=== PATIENT | male | born 1980 | race Caucasian/White ===

== ENCOUNTER 2016-10-14 17:25 | Emergency (ER) | payer SELFPAY ==
[2016-10-14 17:42] VITALS: BP 138/72
[2016-10-14] MEDS ORDERED: Ibuprofen TAB* 800 MG PO ONE (20:19)
--- NOTE | 2016-10-14 20:54 | RAD ---
INDICATION: Right rib injury. TECHNIQUE: 4 views of the right ribs and a PA view of the chest were obtained. FINDINGS: No fracture or significant focal osseous abnormality is seen. The heart is within normal limits in size. The lungs are clear. There is no evidence for pneumothorax or pleural effusion. IMPRESSION: NO EVIDENCE FOR FRACTURE..
--- NOTE | 2016-11-08 08:03 | ED ---
Adult Trauma - HPI Summary HPI Summary: Pt here w. Rt sided rib pain after a pt kneed him in the ribs earlier today. Sore, worse w/ rotation and bending. Denies SOB or difficulty breathing. Better w/ neutral position. Has not taken anything for this yet. No other injuries to report. - History of Current Complaint Chief Complaint: EDChestWallPain Stated Complaint: RT SIDE PAIN Time Seen by Provider: 10/14/16 19:48 Hx Obtained From: Patient Pain Intensity: 4 - Allergy/Home Medications Allergies/Adverse Reactions: Allergies Allergy/AdvReac Type Severity Reaction Status Date / Time Amoxicillin Allergy Anaphylatic Verified 07/17/15 12:04 Shock Penicillins [PCN] Allergy Anaphylatic Verified 07/17/15 12:04 Shock PMH/Surg Hx/FS Hx/Imm Hx Previously Healthy: Yes Endocrine/Hematology History: Denies: Hx Anticoagulant Therapy, Hx Blood Disorders Infectious Disease History: No Infectious Disease History: Denies: Traveled Outside the [place] in Last 30 Days - Social History 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[employer] – [place] Alcohol Use: Occasionally Substance Use Type: Reports: None Smoking Status (MU): Never Smoked Tobacco Review of Systems Negative: Fatigue Negative: Chest Pain Negative: Shortness Of Breath Negative: Vomiting, Nausea Positive: no symptoms reported Musculoskeletal: Other - see HPI Negative: Bruising Neurological: Negative Negative: Weakness, Paresthesia, Numbness, Syncope Psychological: Normal All Other Systems Reviewed And Are Negative: Yes Physical Exam Triage Information Reviewed: Yes Vital Signs On Initial Exam: Initial Vitals Temp Pulse Resp BP Pulse Ox 97.5 F 86 20 138/72 97 10/14/16 17:40 10/14/16 17:40 10/14/16 17:40 10/14/16 17:40 10/14/16 17:40 Vital Signs Reviewed: Yes Appearance: Positive: Well-Appearing, Well-Nourished, Pain Distress - mild Skin: Positive: Warm, Dry - no ecchymosis over affected area Head/Face: Positive: Normal Head/Face Inspection Eyes: Positive: Normal, EOMI ENT: Positive: Hearing grossly normal Respiratory/Lung Sounds: Positive: Clear to Auscultation, Breath Sounds Present. Negative: Rales, Rhonchi, Subcutaneous Emphysema, Stridor, Tracheal Deviation, Wheezes, Unable to speak in full sentences Cardiovascular: Positive: Normal, RRR, Pulses are Symmetrical in both Upper and Lower Extremities Abdomen Description: Positive: Nontender, Soft Musculoskeletal: Positive: Strength/ROM Intact - pain in Rt ribs worse w/ rotation, overhead reaching, Pain @ - Rt ribs TTP - no flail chest or gross deformity Neurological: Positive: Normal, Sensory/Motor Intact, Alert, Oriented to Person Place, Time, CN Intact II-III Psychiatric: Positive: Normal Diagnostics - Vital Signs Vital Signs Temp Pulse Resp BP Pulse Ox 10/14/16 21:20 98.2 F 86 20 138/72 10/14/16 20:41 97.1 F 89 20 10/14/16 17:42 97.4 F 91 20 138/72 100 10/14/16 17:40 97.5 F 86 20 138/72 97 - Laboratory Lab Statement: Any lab studies that have been ordered have been reviewed, and results considered in the medical decision making process. Adult Trauma Course/Dx - Diagnoses Provider Diagnoses: Contusion of rib on right side Discharge - Discharge Plan Condition: Stable Disposition: HOME Patient Education Materials: Rib Contusion (ED) Referrals: Fly Otero JR PA [Primary Care Provider] - Additional Instructions: Rest, ice, compress with pillow for coughing, sneezing, deep breathes Ibuprofen with food alternating with acetaminophen for pain May use salonpas patches as needed for pain Follow-up with PCP if symptoms persist or worsen *If you develop fever, chills, difficulty breathing, return to ED
== END 2016-10-14 21:43 | disposition home or self-care (01) ==
LOC: ED 17:25
DX: S20.211A Contusion of right front wall of thorax, initial encounter (principal); W50.0XXA Accidental hit or strike by another person, initial encounter; Y93.9 Activity, unspecified; Y92.9 Unspecified place or not applicable; R07.81 Pleurodynia
CPT/HCPCS: 99282; A9270-GY

== ENCOUNTER 2017-11-24 02:45 | Emergency (ER) | payer OTHER ==
[2017-11-24 04:37] VITALS: BP 144/80
--- NOTE | 2017-11-24 05:07 | ED ---
Upper Extremity Pain - HPI Summary HPI Summary: This is scribe Artjen Palacio documenting for attending Dr. Matt Song MD. A 37 y/o male presents to ED c/o bilateral right shoulder pain. As per triage, ""feels like it is going to pop out"". According to the patient he experieenced left shoulder numbness and right shoulder soreness from an incident. He noted some tingling and numbness in right arm/hand/thumb. The pain feels like a pinch in his shoulder and it is reaching 6/10 in severity. He denies any tenderness in the shoulder areas, however, it is painful. - History of Current Complaint Chief Complaint: EDExtremityUpper Stated Complaint: BILATERAL SHOULDER INJURY Time Seen by Provider: 11/24/17 03:32 Hx Obtained From: Patient Mechanism Of Injury: Unknown Onset/Duration: Started Days Ago, Still Present Timing: Constant Pain Location: Shoulder - Right and Left Character: Sharp - Pinching Aggravating Factor(s): Movement, Lifting Alleviating Factor(s): Nothing Associated Signs & Symptoms: Positive: Numbness/Tingling. Negative: Fever - Allergies/Home Medications Allergies/Adverse Reactions: Allergies Allergy/AdvReac Type Severity Reaction Status Date / Time amoxicillin Allergy Anaphylatic Verified 11/24/17 04:09 Shock Penicillins Allergy Anaphylatic Verified 11/24/17 04:09 Shock Home Medications: Home Medications NK [No Home Medications Reported] 11/24/17 [History Confirmed 11/24/17] PMH/Surg Hx/FS Hx/Imm Hx Endocrine/Hematology History: Denies: Hx Anticoagulant Therapy, Hx Blood Disorders Respiratory History: Denies: Hx Asthma Infectious Disease History: No Infectious Disease History: Denies: Traveled Outside the [place] in Last 30 Days - Family History Known Family History: Negative: Cardiac Disease - Social History Alcohol Use: Occasionally Substance Use Type: Reports: None Smoking Status (MU): Never Smoked Tobacco Review of Systems Negative: Fever Positive: Other - POSITIVE: Pain in shoulders Neurological: Other - POSITIVE: Tingling Positive: Numbness All Other Systems Reviewed And Are Negative: Yes Physical Exam - Summary Physical Exam Summary: Appearance: Well-appearing, Well-nourished, lying in bed comfortable Skin: Warm, dry, no obvious rash Eyes: sclera anicteric, no conjunctival pallor ENT: mucous membranes moist Neck: deferred Respiratory: No signs of respiratory distress Cardiovascular: Appears well perfused, pulses are nml Abdomen: deferred Musculoskeletal: Moving all 4 extremities without obvious discomfort. Right shoulder pain with ROM but he has pretty good ROM. No motor deficit. No sensory deficit. Reflective of normal without fullness. Neurological: Awake and alert, mentation is normal, speech is fluent and appropriate Psychiatric: affect is normal, does not appear anxious or depressed Triage Information Reviewed: Yes Vital Signs On Initial Exam: Initial Vitals Temp Pulse Resp BP Pulse Ox 97.8 F 74 18 154/93 100 11/24/17 02:49 11/24/17 02:49 11/24/17 02:49 11/24/17 02:49 11/24/17 02:49 Vital Signs Reviewed: Yes Diagnostics - Vital Signs Vital Signs Temp Pulse Resp BP Pulse Ox 11/24/17 04:36 0 F 76 16 144/80 96 11/24/17 02:49 97.8 F 74 18 154/93 100 - Laboratory Lab Statement: Any lab studies that have been ordered have been reviewed, and results considered in the medical decision making process. - Radiology SHOULDER XR Radiology Interpretation Completed By: ED Physician - NORMAL. Course/Dx - Diagnoses Provider Diagnoses: Shoulder pain Discharge - Sign-Out/Discharge Documenting (check all that apply): Patient Departure - Discharge Plan Condition: Stable Disposition: HOME Patient Education Materials: Shoulder Sprain (ED) Referrals: [facility] th Clinic,[facility] [Z.BUSINESS, APPLICATION, OTHER] - Fly Otero JR, PA [Primary Care Provider] - 2 Days Additional Instructions: RETURN TO ED FOR ANY NEW OR WORSENING SYMPTOMS. - Billing Disposition and Condition Condition: STABLE Disposition: Home
--- NOTE | 2017-11-24 08:12 | RAD ---
Indication: RIGHT shoulder pain following injury 4 days ago. Now numbness. Comparison: No relevant prior exams available on the [facility] PACS for comparison. Technique: Internal rotation AP, external rotation Grashey, scapular Y RIGHT shoulder Report: Negative for fracture. Normal acromioclavicular and glenohumeral joint alignment. Mild osteophytic lipping at the acromioclavicular and glenohumeral joints. Small inferior acromial bone spur. Negative for calcific tendinopathy or abnormal soft tissue contour. IMPRESSION: #. No radiographic evidence for RIGHT shoulder traumatic injury. #. Mild osteoarthritis. R1
== END 2017-11-24 04:35 | disposition home or self-care (01) ==
LOC: ED 02:45
DX: M25.511 Pain in right shoulder (principal); M19.011 Primary osteoarthritis, right shoulder; Z88.0 Allergy status to penicillin
CPT/HCPCS: 99282

== ENCOUNTER 2018-05-17 05:41 | Day surgery (SDC) | payer OTHER ==
--- NOTE | 2018-04-27 07:29 | HP ---
HISTORY AND PHYSICAL: DATE OF ADMISSION/SURGERY: 05/17/18. DATE OF OFFICE VISIT: 04/25/18. SURGEON: Lucy Burkett MD.* (DICTATED BY MICHELLE PHILLIPS) PROCEDURE: Right carpal tunnel release. CHIEF COMPLAINT: Right wrist pain. HISTORY OF PRESENT ILLNESS: Mr. Jarrett is a 37-year-old gentleman with confirmed right carpal tunnel syndrome with thenar atrophy. He has elected to proceed with a right carpal tunnel release. PAST MEDICAL HISTORY: Denies. PAST SURGICAL HISTORY: Left knee arthroscopy. CURRENT MEDICATIONS: None. ALLERGIES: PENICILLIN, CEPHALOSPORINS. FAMILY HISTORY: Coronary artery disease, diabetes and cancer. SOCIAL HISTORY: He is a 37-year-old gentleman who lives with his . He does not smoke or use drugs. He uses occasional alcohol. REVIEW OF SYSTEMS: A complete 14-point review of systems was reviewed with the patient, was all negative or noncontributory. He denies a history of DVT, PE, hepatitis, HIV or anesthesia problems. PHYSICAL EXAMINATION GENERAL: He is well developed, well nourished, in no acute distress. VITAL SIGNS: He stands 73 inches tall, weighs 350 pounds. HEENT: Normocephalic, atraumatic. NECK: Supple. No palpable lymph nodes. PULMONARY: The lungs are clear to auscultation bilaterally. CARDIO: Regular rate and rhythm. Strong S1, S2. ABDOMEN: Soft, nontender and nondistended. NEUROLOGICAL: He is alert and oriented x3. MUSCULOSKELETAL: Right upper extremity: The skin is intact. There are no open wounds or abrasions. He has a 2+ distal radius pulse. He has intact sensation. There is some noticeable thenar atrophy and some decreased sensation over the right thumb and index finger. All of his upper extremity muscle group strength are intact at 5/5. ASSESSMENT AND PLAN: Mr. Jarrett is a 37-year-old gentleman with severe right carpal tunnel syndrome. He has elected to proceed with a carpal tunnel release which is scheduled for 05/17/[address] Burkett discussed the risks and benefits of the surgery at today's visit and all of his questions were answered. He will follow up with Dr. Burkett two weeks after the surgery. MICHELLE PHILLIPS [id number]/[facility] #: [id number] JUHI
[~2018-05-17 05:41] MED LIST: Buffered Lidocaine 0.9% SYRIN* 5 ML/SYR SYRINGE INTRADERM ONE
[2018-05-17] MEDS ORDERED: Lactated Ringers 1000 ML Bag* 1,000 ML IV SCH (06:00)
[2018-05-17] MEDS ORDERED: Clindamycin 900 MG/D5W BAG(*) 900 MG/50 ML BAG IVPB ONE (06:15)
[2018-05-17] MEDS ORDERED: Propofol* 10 MG/ML 20 ML BTL ONE (06:40)
[2018-05-17] MEDS ORDERED: fentaNYL* 50 MCG/ML 2 ML VIAL (100 MCG VIAL) ONE (06:41)
[2018-05-17] MEDS ORDERED: Midazolam* 1 MG/ML 2 ML VIAL (2 MG) ONE (06:41)
[2018-05-17] MEDS ORDERED: Lidocaine 2% PF * 5 ML VIAL ONE (06:41)
[2018-05-17] MEDS ORDERED: Bupivacaine 0.5%* 50 ML VIAL ONE (06:55)
[2018-05-17] MEDS ORDERED: Lidocaine 1% INJ* 10 MG/ML 30 ML SDV ONE (06:55)
[2018-05-17] MEDS ORDERED: Succinylcholine* 20 MG/ML 10 ML VIAL ONE (07:22)
[2018-05-17] MEDS ORDERED: Acetaminophen TAB* 325 MG PO PRN (07:59)
[2018-05-17] MEDS ORDERED: Naloxone* 0.4 MG/ML 1 ML VIAL IV PRN (07:59)
[2018-05-17] MEDS ORDERED: oxyCODONE TAB* 5 MG TAB PO PRN (07:59)
[2018-05-17] MEDS ORDERED: fentaNYL* 50 MCG/ML 2 ML VIAL (100 MCG VIAL) IV PRN (07:59)
[2018-05-17] MEDS ORDERED: Ketorolac INJ* 30 MG/ML 1 ML VIAL ONE (08:02)
[2018-05-17] MEDS ORDERED: Metoclopramide IV* 5 MG/ML 2 ML VIAL ONE (08:02)
[2018-05-17] MEDS ORDERED: Dexamethasone IV* 4 MG/ML 1 ML (4 MG) ONE (08:02)
[2018-05-17] MEDS ORDERED: Ondansetron INJ* 2 MG/ML VIAL ONE (08:02)
[2018-05-17 09:21] VITALS: BP 129/93
--- NOTE | 2018-05-17 23:47 | OP ---
DATE OF OPERATION: 05/17/18 - [facility] DATE OF : 78 SURGEON: Lucy Burkett MD PACKAGING SALES CONSULTANT: MICHELLE Heath. Ms. Smith did help throughout the procedure with preparation of the arm, wound retraction, and wound closure. ANESTHESIOLOGIST: Dr. Thornton. ANESTHESIA: General. PRE-OP DIAGNOSIS: Right median nerve compression/carpal tunnel syndrome at the wrist. POST-OP DIAGNOSIS: Right median nerve compression/carpal tunnel syndrome at the wrist. OPERATIVE PROCEDURE: Open right carpal tunnel release. TOURNIQUET TIME: 12 minutes. COMPLICATIONS: None. ESTIMATED BLOOD LOSS: Less than 25 cc. SPECIMEN: None. BRIEF HISTORY AND INDICATIONS: Mr. Jarrett is a 37-year-old gentleman who developed carpal tunnel syndrome as a work-related injury. EMG nerve conduction study confirmed compression of the median nerve at the wrist. Conservative treatments failed to help his pain and numbness. Due to continued pain and decreased quality of life, he elected to undergo carpal tunnel release. Informed consent was obtained from the patient. He understood the risks of surgery included, but were not limited to, bleeding, infection, damage to nearby structures, continued pain, need for further surgery, continued weakness, continued numbness, anesthesia complications, stroke, heart attack, blood clot, and . He wished to proceed. INTRAOPERATIVE FINDINGS: Intraoperatively, the patient was noted to have an extremely thickened palmar fascia as well as a thickened transverse carpal ligament compressing the median nerve. DESCRIPTION OF PROCEDURE: Mr. Jarrett was identified in the preanesthesia unit. His right wrist was marked as the correct operative site. Informed consent was signed and placed in the chart. The patient was taken to the operating room and placed under general anesthesia. The tourniquet was placed on the right upper arm. The right upper extremity was prepped and draped in the usual sterile fashion. Preoperative timeout was made to correctly identify the patient, side, and site. Appropriate perioperative antibiotics were given within 1 hour of incision. 5 cc of 0.5% Marcaine were used for local anesthesia. The tourniquet was inflated and total tourniquet time was 12 minutes. A 2 cm longitudinal incision was made directly over the carpal tunnel with a 15 blade. Tenotomies were used to dissect down through the subcutaneous fat. The palmar fascia was extremely thickened. This was released in a longitudinal fashion using tenotomies and a 15 blade. The transverse carpal ligament was easily visualized. A 15 blade was used to carefully release the ligament longitudinally. The median nerve was visible. Obvious site of compression here was noted. Tenotomies were used to ensure complete release distally and proximally along the transverse carpal ligament. The tourniquet was turned down at 12 minutes. The wound was copiously irrigated with sterile saline. Electrocautery was used to obtain meticulous hemostasis. The wound was closed using interrupted 3-0 Vicryl sutures in a simple and vertical mattress fashion. Sterile Xeroform, 4x4s, and Webril were used to cover the incision. A volar plaster splint was placed with an Junaid wrap over. The patient 's anesthesia was reversed without difficulty. He was taken to the PACU in stable condition. Intended weightbearing will be nonweightbearing, right upper extremity. He will follow up in 3 days for dressing removal and will be placed in a removable splint. [id number]/[facility] #: [id number] JUHI
== END 2018-05-17 09:25 | disposition home or self-care (01) ==
LOC: OR 05:41
PROVIDERS: ATTEND Orthopaedic Surgery Adult Reconstructive Orthopaedic Surgery
DX: G56.01 Carpal tunnel syndrome, right upper limb (principal); E66.01 Morbid (severe) obesity due to excess calories; R01.1 Cardiac murmur, unspecified; J45.909 Unspecified asthma, uncomplicated
CPT/HCPCS: J0330; J1100; J1885; J2250; J2405; J2704; J2765; J3010

== ENCOUNTER 2019-01-08 01:01 | Emergency (ER) | payer OTHER ==
[2019-01-08 01:24] VITALS: BP 0/0
--- NOTE | 2019-01-08 01:24 | ED ---
Upper Extremity Pain - HPI Summary HPI Summary: Pt is a 38 y/o M presenting to the ED with a chief complaint of upper extremity pain. 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 However, he developed pain in his L-sided scapula as well as a shooting pain from his R shoulder down to his R hand. He denies any numbness/ tingling or neck pain. - History of Current Complaint Chief Complaint: EDShouldMelyssalaScarlet Stated Complaint: NERVE PAIN PER PT Time Seen by Provider: 01/08/19 01:12 Hx Obtained From: Patient Mechanism Of Injury: Unknown Onset/Duration: Started Hours Ago, Still Present Timing: Constant, Lasting Hours Severity Initially: Moderate Severity Currently: Moderate Pain Location: Shoulder - R shoulder, radiates to hand, Other: - L scapula Aggravating Factor(s): Movement Alleviating Factor(s): Nothing Associated Signs & Symptoms: Negative: Numbness/Tingling, Neck Pain - Allergies/Home Medications Allergies/Adverse Reactions: Allergies Allergy/AdvReac Type Severity Reaction Status Date / Time Cephalosporins Allergy ANAPHYLAXIS Verified 01/08/19 01:04 Penicillins Allergy Anaphylatic Verified 01/08/19 01:04 Shock PMH/Surg Hx/FS Hx/Imm Hx Previously Healthy: Yes Endocrine/Hematology History: Denies: Hx Anticoagulant Therapy, Hx Blood Disorders Cardiovascular History: Denies: Other Cardiovascular Problems/Disorders Respiratory History: Reports: Hx Asthma - CHILD Denies: Other Respiratory Problems/Disorders GI History: Denies: Other GI Disorders Musculoskeletal History: Reports: Other Musculoskeletal History - BILATERAL CARPAL TUNNEL Sensory History: Denies: Hx Contacts or Glasses, Hx Hearing Aid Opthamlomology History: Denies: Hx Contacts or Glasses - Surgical History Surgery Procedure, Year, and Place: LEFT LATERAL MENSICUS 1995 [place]. LASIK EYE 2007. RIGHT CARPAL TUNNEL 05/17/18 Hx Anesthesia Reactions: No Infectious Disease History: No Infectious Disease History: Denies: Traveled Outside the [place] in Last 30 Days - Family History Known Family History: Negative: Cardiac Disease - Social History Alcohol Use: Rare Alcohol Amount: SOCIAL Substance Use Type: Reports: None Smoking Status (MU): Never Smoked Tobacco Have You Smoked in the Last Year: No Review of Systems Negative: Other - neck pain Positive: Myalgia Negative: Weakness, Paresthesia All Other Systems Reviewed And Are Negative: Yes Physical Exam - Summary Physical Exam Summary: Appearance: Well-appearing, Well-nourished, lying in bed comfortable Skin: Warm, dry, no obvious rash Eyes: sclera anicteric, no conjunctival pallor ENT: mucous membranes moist Neck: no restriction of ROM, no pain with ROM. Respiratory: No signs of respiratory distress Cardiovascular: Appears well perfused, pulses are nml Abdomen: deferred Musculoskeletal: In the pts upper extremity, both of his forearms and hands are intact to light tough and symmetric. There is no weakness at the biceps or triceps, weakness of the finger extensors or flexors, or weakness of intrinsic muscles on the right. There is nearly full ROM of both shoulders with the exception being the left, he has trouble bringing his L arm behind his neck. Neurological: Awake and alert, mentation is normal, speech is fluent and appropriate Psychiatric: affect is normal, does not appear anxious or depressed Triage Information Reviewed: Yes Vital Signs On Initial Exam: Initial Vitals Temp Pulse Resp BP Pulse Ox 97.6 F 50 20 135/96 96 01/08/19 01:02 01/08/19 01:02 01/08/19 01:02 01/08/19 01:02 01/08/19 01:02 Vital Signs Reviewed: Yes Diagnostics - Vital Signs Vital Signs Temp Pulse Resp BP Pulse Ox 01/08/19 01:02 97.6 F 50 20 135/96 96 - Laboratory Lab Statement: Any lab studies that have been ordered have been reviewed, and results considered in the medical decision making process. 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 He developed pain in his L-sided scapula as well as a shooting pain from his R shoulder down to his R hand. He denies any numbness/tingling or neck pain. On exam, in the pts upper extremity, both of his forearms and hands are intact to light tough and symmetric. There is no weakness at the biceps or triceps, weakness of the finger extensors or flexors, or weakness of intrinsic muscles on the right. There is nearly full ROM of both shoulders with the exception being the left, he has trouble bringing his L arm behind his neck. On the pt's neck exam, there is no restriction of ROM or pain with ROM. He will be sent home with dx of bilateral shoulder strain. He is stable and agreeable with this plan. - Diagnoses Provider Diagnoses: Shoulder strain Discharge ED - Sign-Out/Discharge Documenting (check all that apply): Patient Departure Patient Received Moderate/Deep Sedation with Procedure: No - Discharge Plan Condition: Stable Disposition: HOME Patient Education Materials: Muscle Strain (ED) Referrals: Lucy Burkett MD [Medical Doctor] - 3 Days (if not improving) Fly Otero JR, PA [Primary Care Provider] - - Billing Disposition and Condition Condition: STABLE Disposition: Home - Attestation Statements Document Initiated by Espinozaibe: Yes Documenting Scribe: Carrie Booth Provider For Whom Rosalina is Documenting (Include Credential): Matt Song MD. Scribe Attestation: Carrie Chua scribed for Matt Song MD. on 01/11/19 at 1853. Scribe Documentation Reviewed: Yes Provider Attestation: The documentation as recorded by the Carrie rod accurately reflects the service I personally performed and the decisions made by Matt bullock MD. Status of Scribe Document: Viewed
== END 2019-01-08 01:23 | disposition home or self-care (01) ==
LOC: ED 01:01
DX: S46.912A Strain of unspecified muscle, fascia and tendon at shoulder and upper arm level, left arm, initial encounter (principal); X58.XXXA Exposure to other specified factors, initial encounter; Y93.F9 Activity, other caregiving; Y92.89 Other specified places as the place of occurrence of the external cause; Y99.0 Civilian activity done for income or pay; J45.909 Unspecified asthma, uncomplicated; Z88.1 Allergy status to other antibiotic agents; Z88.0 Allergy status to penicillin
CPT/HCPCS: 99281